=== PATIENT | male | born 1990 | race Caucasian/White ===

== ENCOUNTER 2019-01-20 23:09 | Emergency (ER) | payer BC ==
[~2019-01-20] VITALS: Ht 180.3 cm; Wt 74.8 kg
--- NOTE | 2019-01-20 23:34 | NUR ---
FROM HOME WITH C/O FINGER LACERTAION ON LEFT INDEX FINGER 30 MIN [employer], CUT FINIGER ON SHOWER GLASS. LAST TETANUS SHOT 2017.
--- NOTE | 2019-01-20 23:42 | NUR ---
DR. ARAIZA AT BEDSIDE FOR MSE.
[2019-01-20] MEDS ORDERED: LIDOCAINE HCL 1% 20 ML VIAL IJ ONE (23:45)
[2019-01-21 01:06] VITALS: BP 114/70
--- NOTE | 2019-01-21 01:06 | NUR ---
Patient discharged to home in stable conditon. Written and verbal after care instructions given. Patient verbalizes understanding of instructions. PATIENT LEFT WITH STABLE GAIT.
== END 2019-01-21 01:07 | disposition home or self-care (01) ==
LOC: ER 23:12 → EDSEX 23:12 → ER 01-21 01:07
DX: S61.211A Laceration without foreign body of left index finger without damage to nail, initial encounter (principal); W25.XXXA Contact with sharp glass, initial encounter; Y93.89 Activity, other specified; Y92.89 Other specified places as the place of occurrence of the external cause; Y99.8 Other external cause status
CPT/HCPCS: A4663

== ENCOUNTER 2019-01-23 13:51 | Emergency (ER) | payer BC ==
[~2019-01-23] VITALS: Ht 180.3 cm; Wt 74.8 kg
--- NOTE | 2019-01-23 13:55 | NUR ---
Wound cleansed and dressed w/DSD.
--- NOTE | 2019-01-23 13:59 | NUR ---
Physician at bedside.
[2019-01-23 14:15] VITALS: BP 133/58
--- NOTE | 2019-01-23 14:15 | NUR ---
Discharge instructions given and patient is discharged.
== END 2019-01-23 14:18 | disposition home or self-care (01) ==
LOC: ER 13:51
DX: S61.211D Laceration without foreign body of left index finger without damage to nail, subsequent encounter (principal); X58.XXXD Exposure to other specified factors, subsequent encounter
CPT/HCPCS: A4663

== ENCOUNTER 2019-01-30 11:18 | Emergency (ER) | payer BC ==
[~2019-01-30] VITALS: Ht 180.3 cm; Wt 74.8 kg
--- NOTE | 2019-01-30 11:37 | NUR ---
Patient discharged to home in stable conditon. Written and verbal after care instructions given. Patient verbalizes understanding of instructions.
== END 2019-01-30 11:38 | disposition home or self-care (01) ==
LOC: ER 11:18
DX: S61.211D Laceration without foreign body of left index finger without damage to nail, subsequent encounter (principal); X58.XXXD Exposure to other specified factors, subsequent encounter
CPT/HCPCS: A4663